=== PATIENT | male | born 1955 | race Caucasian/White ===

== ENCOUNTER 2018-06-08 11:13 | Outpatient (CLI) | payer BC | END 2018-06-08 11:14 | disposition home or self-care (01) | LOC: BICRAD 11:13 | PROVIDERS: ATTEND Chiropractor | DX: R19.01 Right upper quadrant abdominal swelling, mass and lump (principal); R20.0 Anesthesia of skin; M54.17 Radiculopathy, lumbosacral region; K80.20 Calculus of gallbladder without cholecystitis without obstruction | CPT/HCPCS: 74022 ==

== ENCOUNTER 2018-07-13 06:59 | Outpatient (CLI) | payer BC ==
--- NOTE | 2018-07-13 08:58 | ULT ---
ABDOMINAL ULTRASOUND: Date: 07/13/18 HISTORY: Abdominal pain. FINDINGS: Real-time imaging of the upper abdomen was performed. This shows a large stone within the gallbladder . No gallbladder wall thickening. Technologist reports a negative ultrasound Bose's sign. The commo n duct is 4.0 mm. Liver shows fatty change, difficult to penetrate. The spleen measures 10.3 cm in length. Right and left kidneys are normal in size and not obstructed. Pancreas is partially obscured. Portion s of the abdominal aorta and IVC regions are also partially obscured, but no abnormality seen. IMPRESSION: 1. Fatty changes of the liver. 2. Cholelithiasis with a normal caliber common duct. POS: [facility]
== END 2018-07-13 07:00 | disposition home or self-care (01) ==
LOC: BICULT 06:59
PROVIDERS: ATTEND Family Medicine
DX: R10.11 Right upper quadrant pain (principal); K80.20 Calculus of gallbladder without cholecystitis without obstruction; K76.0 Fatty (change of) liver, not elsewhere classified
CPT/HCPCS: 76700

== ENCOUNTER 2020-10-07 08:39 | Emergency (ER) | payer OTHER ==
--- NOTE | 2020-10-07 09:21 | RAD ---
EXAM: 3 views of the right shoulder HISTORY: Shoulder pain after fall COMPARISON: None FINDINGS: There is no evidence of acute fracture or dislocation. Mild acromioclavicular degenerative changes are present. No soft tissue swelling is seen. The visualized thorax is unremarkable. IMPRESSION: No evidence of acute osseous abnormality.
== END 2020-10-07 10:02 | disposition home or self-care (01) ==
LOC: ERS 08:39
DX: S40.011A Contusion of right shoulder, initial encounter (principal); Z79.82 Long term (current) use of aspirin; Z79.899 Other long term (current) drug therapy; W17.89XA Other fall from one level to another, initial encounter

== ENCOUNTER 2024-07-09 12:43 | Outpatient (CLI) | payer BC ==
[~2024-07-09 12:43] MED LIST: Iopamidol 370 76% 100 ML VIAL ONE
== END 2024-07-09 12:44 | disposition home or self-care (01) ==
LOC: CT 12:43
PROVIDERS: ATTEND Student in an Organized Health Care Education/Training Program
DX: I48.19 Other persistent atrial fibrillation (principal); K80.20 Calculus of gallbladder without cholecystitis without obstruction; Z95.818 Presence of other cardiac implants and grafts
CPT/HCPCS: 36415; 71275; 82565; Q9967